=== PATIENT | female | born 1995 | race African-American/Black ===

== ENCOUNTER 2016-07-06 01:52 | Emergency (ER) ==
[2016-07-06 02:09] VITALS: BP 127/80
--- NOTE | 2016-07-06 02:55 | PROVIDER DOCUMENTATION ---
[id number] Abuse/Overdose - General Chief Complaint: Intoxicated Stated Complaint: "PASSING OUT" Time Seen by Provider: 07/06/16 02:11 Source: patient Allergies/Adverse Reactions: Allergies Allergy/AdvReac Type Severity Reaction Status Date / Time No Known Allergies Allergy Verified 07/06/16 02:10 Home Medications: Home Medication List Medication Instructions Recorded Confirmed Last Taken Type No Home Medications 07/06/16 07/06/16 Unknown History - History of Present Illness-Drug/Alcohol This episode of drinking or use began:: 1 hour ago Situational problems related to:: reports: spouse Psychiatric Complaints: reports: anxiety Associated Symptoms: reports: denies symptoms, cough Any injuries associated with this episode of intoxication?: Yes Similar Symptoms Previously?: Yes Recently seen or treated by another doctor?: Yes Review of Systems - Adult - REVIEW OF SYSTEMS - ADULT Constitutional: reports: no symptoms reported Eyes: reports: no symptoms reported Ears, Nose, Mouth & Throat: reports: no symptoms reported Cardiovascular: reports: no symptoms reported Respiratory: reports: no symptoms reported Gastrointestinal: reports: no symptoms reported Genitourinary: reports: no symptoms reported Musculoskeletal: reports: no symptoms reported Integumentary: reports: no symptoms reported Neurological: reports: no symptoms reported Psychiatric: reports: no symptoms reported Endocrine: reports: no symptoms reported Hematologic/Lymphatic: reports: no symptoms reported Allergic/Immunologic: reports: no symptoms reported All Other Systems: Reviewed and Negative Past History - Adult - PAST MEDICAL HISTORY-ADULT Review of Records: reports: Old Records Reviewed, Nursing Assessment Review, Medications Reviewed, Social history reviewed & non-contributory. Major Childhood Illnesses: reports: denies history Cardiovascular: reports: denies history Respiratory: reports: denies history Gastrointestinal: reports: denies history Obstetrical/Gynecological: reports: denies history Genitourinary: reports: denies history Musculoskeletal: reports: denies history Neurological: reports: denies history Endocrine/Immune: reports: denies history Other Conditions: reports: denies history - FAMILY HISTORY Family History: reviewed, not pertinent Physical Exam-General - PHYSICAL EXAM-ADULT Initial Vital Signs Reviewed: Yes - CONSTITUTIONAL General Appearance: appears well - EYES Eyes: PERRL/EOMI - HEAD, EARS, NOSE, MOUTH & THROAT HENMT: normocephalic/atraumatic - NECK Neck: non-tender - RESPIRATORY Respiratory: lungs clear - CARDIOVASCULAR Cardiovascular: no gallop, tachycardia - GASTROINTESTINAL (ABDOMEN) Abdominal Exam: normal bowel sounds - LYMPHATIC Lymphatic: no adenopathy - MUSCULOSKELETAL Back Exam: decreased range of motion Extremity: normal gait - PSYCHIATRIC Psych/Mental Status: disheveled, depressed affect Departure - Departure Time of Disposition Order: 02:00 DIAGNOSIS: Intoxication Disposition: HOME 01 Certified Medical Emergency: Emergent Condition: Stable
== END 2016-07-06 02:55 | disposition home or self-care (01) ==
LOC: P.ED 01:52
DX: F10.129 Alcohol abuse with intoxication, unspecified (principal); R05 Cough; R00.0 Tachycardia, unspecified